=== PATIENT | male | born 1985 | race African-American/Black ===

== ENCOUNTER 2022-11-27 16:26 | Emergency (ER) | payer OTHER ==
[2022-11-27 17:08] LABS: Hemoglobin 16.4 g/dL (14.0-18.0); Mean Corpuscular HGB CONC 32.2 g/dL (32.0-36.0); Mean Corpuscular Hemoglobin 27.4 pg (27.0-31.0); Mean Corpuscular Volume 85.2 fl (78.0-98.0); Mean Platelet Volume 8.2 fL (7.4-10.4); Platelet Count 257 10x3/uL (130-400); RBC Distribution Width 15.2 % (11.5-14.5); Red Blood Cell (RBC) Count 5.97 mill/uL (4.70-6.10); White Blood Cell (WBC) Count 7.7 10x3/uL (4.8-10.8)
[2022-11-27 17:17] LABS: ALT (SGPT) 72 U/L (8-55); AST (SGOT) 75 U/L (5-34); Albumin 4.8 g/dL (3.5-5.0); Alkaline Phosphatase 24 U/L (40-110); Anion Gap 13 mmol/L (10-20); BUN (Urea Nitrogen) 14 mg/dL (8.9-20.6); Bilirubin, Total 0.5 mg/dL (0.2-1.2); CK (CPK) 4333 U/L (30-200); Calc. Creatinine Clearance 0 mL/min (70-130); Calcium 9.9 mg/dL (7.8-10.44); Carbon Dioxide 28 mmol/L (22-29); Chloride 101 mmol/L (98-107); Estimated GFR 62; Globulin 3.2 g/dL (2.4-3.5); Glucose 102 mg/dL (70-105); Potassium 2.9 mmol/L (3.5-5.1); Sodium 139 mmol/L (136-145)
[2022-11-27] MEDS ORDERED: NS 0.9% w/ 20 MEQ KCL 1,000 ML ONE (17:26)
[2022-11-27] MEDS ORDERED: Potassium Chloride 20 MEQ TAB ONE (17:26)
[2022-11-27 17:29] LABS: Eosinophils 4 % (0-10); Lymphocytes 39 % (21-51); MDiff Complete? YES; Monocytes 10 % (0-10); Neutrophil 46 % (42-75); Platelet Morphology Comment Appears Adequate; RBC Morphology Normal
== END 2022-11-27 19:29 | disposition home or self-care (01) ==
LOC: BURERS 16:26
DX: R07.9 Chest pain, unspecified (principal); E86.0 Dehydration; R79.89 Other specified abnormal findings of blood chemistry; I10 Essential (primary) hypertension; Z79.899 Other long term (current) drug therapy
CPT/HCPCS: 71045; 80053; 82550; 84443; 84484; 85025; 93005; 96365; 96366; J3480